=== PATIENT | male | born 1955 | race Two or more races ===

== ENCOUNTER 2020-09-22 19:48 | Emergency (ER) | payer SELFPAY ==
[~2020-09-22] VITALS: Ht 154.9 cm; Wt 49.9 kg
[2020-09-22 19:48] VITALS: BP 122/96
== END 2020-09-22 20:18 ==
LOC: ER 19:48
DX: F10.129 Alcohol abuse with intoxication, unspecified (principal); E78.5 Hyperlipidemia, unspecified; I10 Essential (primary) hypertension